=== PATIENT | female | born 1960 | race Caucasian/White ===

== ENCOUNTER 2021-08-07 00:32 | Day surgery (SDC) | payer OTHER, SELFPAY ==
[2021-07-27 12:41] VITALS: BMI 22.6
[2021-08-07 06:34] VITALS: BP 144/68; PULSE 69; RESP 18; TEMP 36.4; O2SAT 98; BMI 23.8
[2021-08-07] MEDS: LACTATED RINGERS 1,000 ML 150 ML IV CONT (06:36)
--- NOTE | 2021-08-07 06:50 | PM.HPGS ---
History of Present Illness History of Present Illness Consent: Risks, benefits, and alternatives have been discussed and questions answered. Patient agrees to proceed with procedure. Chief complaint: hx of colon polyps, neoplasm screening Narrative: Yamileth Pérez is a 60 year old female was referred for colon cancer screening. She had a tubular adenoma removed about 5 years ago. Review of Systems Review of Systems: All systems reviewed & are unremarkable except as noted in HPI and below PMFSH Social History Social History Smoking status: Never smoker Alcohol intake: never Substance use: never Substance use type: does not use Living arrangements: with family Spiritual care concerns: No Meds Home Medications and Allergies Home Medications Medication Instructions Recorded Confirmed Type cyclobenzaprine 5 mg PO DAILY PRN 07/27/21 07/27/21 History ergocalciferol (vitamin D2) 1,250 mcg PO WEEKLY 07/27/21 07/27/21 History losartan 100 mg PO DAILY 07/27/21 07/27/21 History sumatriptan succinate 100 mg PO DAILY 07/27/21 07/27/21 History Allergies Allergy/AdvReac Type Severity Reaction Status Date / Time shellfish derived Allergy Severe HIVES Verified 08/07/21 06:32 Vital Signs Vital Signs - 24 hr 08/07/21 06:34 Temperature 36.4 C L Pulse Rate 69 Respiratory Rate 18 Blood Pressure 144/68 H Pulse Oximetry 98 Exam Resp: Auscultation: clear to auscultation bilaterally Cardio: Rate: regular rate Rhythm: regular rhythm GI: GI Palp: Yes Soft to palpation and No Tenderness to palpation present (GI) Assessment and Plan Assessment and plan (1) Colon cancer screening: Code(s): Z12.11 - Encounter for screening for malignant neoplasm of colon Status: Acute Assessment and Plan: Colonoscopy with possible biopsy or polypectomy or cautery or injection of substances.
--- NOTE | 2021-08-07 07:16 | WPDANESEPPF ---
Anes - Initial Pre Proc Eval Procedure: Operation Date: 08/07/21 07:30 Proposed Procedures p Screening Colonoscopy - Steven Duran MD Date/Time: 08/07/21 07:16 Surgeon: Steven Duran MD Pre Op Diagnosis: hx of colon polyps, neoplasm screening Patient Data Age: 60 Gender: F Height: 1.63 m Weight: 62.9 kg Last Vital Signs Temp 97.5 F L 08/07/21 06:34 Pulse 69 08/07/21 06:34 Resp 18 08/07/21 06:34 BP 144/68 H 08/07/21 06:34 Pulse Ox 98 08/07/21 06:34 Allergies Allergy/AdvReac Type Severity Reaction Status Date / Time shellfish derived Allergy Severe HIVES Verified 08/07/21 06:32 Home Medications Medication Instructions Recorded Confirmed Type cyclobenzaprine 5 mg PO DAILY PRN 07/27/21 07/27/21 History ergocalciferol (vitamin D2) 1,250 mcg PO WEEKLY 07/27/21 07/27/21 History losartan 100 mg PO DAILY 07/27/21 07/27/21 History sumatriptan succinate 100 mg PO DAILY 07/27/21 07/27/21 History Patient hx anesthesia problems: none Family hx anesthesia problems: none Results Review: All pre-operative results and documents have been reviewed as part of the pre-operative evaluation. [facility] Social History Social History Smoking status: Never smoker Alcohol intake: never Substance use: never Substance use type: does not use Living arrangements: with family Spiritual care concerns: No Anes - Eval Final PreProcedure Day of Procedure 08/07/21 07:16 Patient weight: normal Heart: regular rate and rhythm Lungs: clear to auscultation Airway: Mallampati scale class II Neurological: alert and oriented Last oral intake: >/= 8 hours ASA classification: II Emergent: no Anesthetic plan: proceed Anesthesia type and monitoring: general GIVS and standard monitoring Results Review: All pre-operative results and documents have been reviewed as part of the pre-operative evaluation. Informed Consent: The patient's anesthetic plan and its attendant risks and benefits were discussed with the patient/family/POA. Questions were solicited and answers provided to the satisfaction of the patient/family/POA.
[2021-08-07 07:45] VITALS: BP 103/61; PULSE 73; RESP 14; O2SAT 98
[2021-08-07 07:55] VITALS: BP 108/68; PULSE 69; RESP 17; O2SAT 100
[2021-08-07 08:05] VITALS: BP 145/80; PULSE 62; RESP 17; O2SAT 100
[2021-08-07] MEDS: ARTIFICIAL TEARS OPHTH SOLN 15 ML BOTTLE 1 DROP EACH EYE (08:10)
[2021-08-07] MEDS: PROPARACAINE HCL 0.5% 15 ML OPHTH SOLN 1 DROP EACH EYE (08:15)
[2021-08-07] MEDS: DICLOFENAC SODIUM 0.1% OPHTH SOLN 2.5 ML BOTTLE 1 DROP EACH EYE (08:16)
== END 2021-08-07 08:10 | disposition home or self-care (01) ==
PROVIDERS: PCP Family Medicine; Visit Provider Internal Medicine Gastroenterology
PROC: 0DJD8ZZ Inspection of Lower Intestinal Tract, Via Natural or Artificial Opening Endoscopic (ICD-10-PCS; CPT 45378; principal; 2021-08-07 07:30)
DX: Z12.11 Encounter for screening for malignant neoplasm of colon (principal); Z86.010 Personal history of colon polyps; K57.30 Diverticulosis of large intestine without perforation or abscess without bleeding
CPT/HCPCS: 45378; A9270; J2704; J7120

== ENCOUNTER 2023-06-03 14:27 | Outpatient (CLI) | payer OTHER, SELFPAY ==
--- NOTE | ~2023-06-03 | MR_ITS ---
MRI of the left foot Clinical history: Fracture TECHNIQUE: Sagittal T1-weighted and STIR images, axial proton-density and proton-density fat-sat imag es, and coronal T1-weighted and proton-density fat-sat images were acquired. FINDINGS: No fracture or dislocation seen. Bone marrow signals are unremarkable. There is mild degene rative change of the fourth and fifth tarsometatarsal joints. Remaining joint spaces are preserved. N o osteochondral lesion of the talar dome. Visualized tendons are intact. There is mild soft tissue edema at the plantar aspect of the foot abou t the plantar fascia, which is minimally thickened. No other soft tissue and relatively clearly evide nt. There are minimal subtalar and tibiotalar joint effusions. Intrinsic musculature of the foot is u nremarkable. IMPRESSION: No fracture or dislocation. Probable mild plantar fasciitis. Mild degenerative change of the fourth and fifth TMT joints. Reviewed, dictated and finalized at location . [employer]
== END 2023-06-03 14:28 ==
PROVIDERS: PCP Podiatrist Foot & Ankle Surgery; Visit Provider Podiatrist Foot & Ankle Surgery
DX: S92.212A Displaced fracture of cuboid bone of left foot, initial encounter for closed fracture (principal); X58.XXXA Exposure to other specified factors, initial encounter; M19.072 Primary osteoarthritis, left ankle and foot
CPT/HCPCS: 73718